=== PATIENT | female | born 1970 | race Caucasian/White ===

== ENCOUNTER 2017-07-23 07:00 | Day surgery (SDC) | payer BC ==
[~2017-07-23 07:00] MED LIST: BALANCED SALT SOLN 15 ML OPH IRRIG; CEFAZOLIN 1 GM INJ; LACTATED RINGER'S 1,000 ML IV
[2017-07-23] MEDS: BROMFENAC SODIUM 1.7 ML OPH DROP OPER (08:06)
[2017-07-23] MEDS: MOXIFLOXACIN 0.5% 3 ML OPH OPER (08:06)
[2017-07-23] MEDS: TETRACAINE 0.5% 4 ML OPH OPER ×2 (08:07→09:14)
[2017-07-23] MEDS: CYCLOPENTOLATE 1% 2 ML OPH OPER (08:07)
[2017-07-23] MEDS: LIDOCAINE 3.5% GEL TUBE OPER (08:08)
[2017-07-23] MEDS ORDERED: FENTAnyl 50 MCG/ML VIAL (08:56)
[2017-07-23] MEDS: LIDOCAINE 1%/EPI 30 ML INJ INJ (09:15)
[2017-07-23] MEDS: PHENYLephrine 10% 5 ML OPH RIGHT EYE (09:19)
[2017-07-23] MEDS: TOBRAMYCIN/DEXAMETH 3.5 GM OPH OINT (09:20)
[2017-07-23] MEDS ORDERED: ONDANSETRON 4 MG INJ IV (09:30)
[2017-07-23] MEDS ORDERED: MEPERIDINE 25 MG INJ IV (09:30)
[2017-07-23] MEDS ORDERED: METOCLOPRAMIDE 10 MG INJ IV (09:30)
[2017-07-23] MEDS ORDERED: FENTAnyl 50 MCG/ML VIAL IV (09:30)
[2017-07-23] MEDS ORDERED: DIPHENHYDRAMINE 50 MG INJ IV (09:30)
[2017-07-23] MEDS ORDERED: LABETALOL HCL 20MG INJ IV (09:30)
== END 2017-07-23 11:25 | disposition home or self-care (01) ==
LOC: SDS 07:00
DX: H11.051 Peripheral pterygium, progressive, right eye (principal); I10 Essential (primary) hypertension
CPT/HCPCS: 65426; 84703

== ENCOUNTER 2018-08-21 07:03 | Day surgery (SDC) | payer BC ==
[~2018-08-21 07:03] MED LIST changes: -LACTATED RINGER'S 1,000 ML IV
[2018-08-21] MEDS: LIDOCAINE 3.5% GEL TUBE OPER (07:58)
[2018-08-21] MEDS: MOXIFLOXACIN 0.5% 3 ML OPH OPER ×3 (07:58→08:08)
[2018-08-21] MEDS: PHENYLephrine 2.5% 15 ML OPH OPER ×3 (07:58→08:08)
[2018-08-21] MEDS: TETRACAINE 0.5% 4 ML OPH OPER ×3 (07:59→08:08)
[2018-08-21] MEDS: BROMFENAC SODIUM 1.7 ML OPH DROP OPER ×3 (07:59→08:08)
[2018-08-21] MEDS: LACTATED RINGER'S 1,000 ML IV (08:00)
[2018-08-21] MEDS: LIDOCAINE 2%/EPI (MDV) 20ML INJ INJ (09:20)
[2018-08-21] MEDS ORDERED: CARBACHOL 0.01% 1.5 ML OPH INJ (09:21)
[2018-08-21] MEDS ORDERED: EPINEPHrine 1 MG INJ (09:22)
[2018-08-21] MEDS ORDERED: NA HYALURONATE/CHONDROITIN 0.5 ML SYG (09:22)
[2018-08-21] MEDS ORDERED: TOBRAMYCIN 0.3% 3.5 GM OPH OINT (09:22)
[2018-08-21] MEDS ORDERED: MIDAZOLAM 1 MG/ML 2 ML INJ (09:50)
[2018-08-21] MEDS ORDERED: FENTAnyl 50 MCG/ML VIAL (09:50)
[2018-08-21] MEDS: TETRACAINE 0.5% 4 ML OPH LEFT EYE (10:12)
[2018-08-21] MEDS: TOBRAMYCIN/DEXAMETH 3.5 GM OPH OINT LEFT EYE (10:13)
[2018-08-21] MEDS ORDERED: TOBRAMYCIN/DEXAMETH 3.5 GM OPH OINT (10:42)
== END 2018-08-21 11:37 | disposition home or self-care (01) ==
LOC: SDS 07:03
DX: H11.052 Peripheral pterygium, progressive, left eye (principal); I10 Essential (primary) hypertension
CPT/HCPCS: 65426; 84703